=== PATIENT | male | born 1990 | race Caucasian/White ===

== ENCOUNTER 2021-03-05 20:37 | Emergency (ER) | payer SELFPAY ==
[~2021-03-05] VITALS: Ht 177.8 cm; Wt 132.4 kg
[2021-03-05 20:48] VITALS: BP 117/88
[2021-03-05] MEDS ORDERED: MORPHINE SULFATE 4 MG/ML SYR IM ONE (23:30)
[2021-03-05] MEDS ORDERED: KETOROLAC 60 MG/2 ML VIAL IM ONE (23:30)
[2021-03-06] MEDS ORDERED: NAPR-54 PO (00:16)
[2021-03-06] MEDS ORDERED: COLC0.6C PO (00:16)
[2021-03-06] MEDS ORDERED: ALLO100T21 PO (00:16)
--- NOTE | 2021-03-06 00:30 | NUR ---
Patient discharged with v/s stable. Written and verbal after care instructions given and explained. Patient alert, oriented and verbalized understanding of instructions. Ambulatory with steady gait. All questions addressed prior to discharge. ID band removed. Patient advised to follow up with PMD. Rx of ALLOPURINOL, COLCHICINE, AND NAPROSYN given. Patient educated on indication of medication including possible reaction and side effects. Opportunity to ask questions provided and answered.
== END 2021-03-06 00:30 | disposition home or self-care (01) ==
LOC: MED 20:37
DX: M10.062 Idiopathic gout, left knee (principal); J45.909 Unspecified asthma, uncomplicated; Z79.899 Other long term (current) drug therapy
CPT/HCPCS: 36415; 84550; 96372; 99284; J1885; J2270

== ENCOUNTER 2021-03-15 12:59 | Emergency (ER) | payer SELFPAY ==
[~2021-03-15] VITALS: Ht 177.8 cm; Wt 132.4 kg
[~2021-03-15 12:59] MED LIST: ALLO100T21 PO; COLC0.6C PO; NAPR-54 PO
[2021-03-15 13:11] VITALS: BP 155/97
[2021-03-15] MEDS ORDERED: MORPHINE SULFATE 4 MG/ML SYR IM ONE (14:15)
[2021-03-15] MEDS ORDERED: methylPREDNISolone SS 125 MG in WATER STERILE 2 ML IM ONE (14:15)
--- NOTE | 2021-03-15 14:30 | NUR ---
30/M BIBA WITH C/O BILATERAL HAND AND FEET PAIN AND SWELLING. STATES HE WAS DX WITH GOUT 1 WEEK AGO AND WAS GIVEN RX OF PREDNISONE AND TRAMADOL BUT STATES NO RELIEF AND THAT SYMPTOMS HAVE BEEN WORSENING. DENIES CP, SOB, FEVERS. MEDHX: GOUT
[2021-03-15] MEDS ORDERED: methylPREDNISolone SS 125 MG/2 ML VIAL ONE (14:46)
[2021-03-15] MEDS ORDERED: WATER STERILE 10 ML MC ONE (14:46)
--- NOTE | 2021-03-15 15:08 | NUR ---
IM PAIN MEDS GIVEN-NADR AT THIS TIME
[2021-03-15] MEDS ORDERED: KETOROLAC 30 MG/ML VIAL IM ONE (15:35)
[2021-03-15] MEDS ORDERED: INDO-304 PO (15:35)
[2021-03-15 16:36] VITALS: BP 137/79
--- NOTE | 2021-03-15 16:36 | NUR ---
Patient discharged with v/s stable. Written and verbal after care instructions ABOUT ARTHRITIS given and explained. Patient alert, oriented and verbalized understanding of instructions. Ambulatory with steady gait. All questions addressed prior to discharge. ID band removed. Patient advised to follow up with PMD. Rx of INDOMETHACIN given. Patient educated on indication of medication including possible reaction and side effects. Opportunity to ask questions provided and answered.
--- NOTE | 2021-03-15 16:51 | NUR ---
PT WAS GIVEN CRUTCHES AND DEMONSTRATED SAFE USE. ER PA NOTIFIED.
[2021-03-21] MEDS ORDERED: INDO-304 PO (09:06)
== END 2021-03-15 16:36 | disposition home or self-care (01) ==
LOC: MED 12:59
DX: M10.9 Gout, unspecified (principal); J45.909 Unspecified asthma, uncomplicated
CPT/HCPCS: 96372; 99284; J1885; J2270; J2930